=== PATIENT | male | born 1995 | race Caucasian/White ===

== ENCOUNTER → 2020-08-09 | Outpatient (CLI) | payer OTHER ==
--- NOTE | 2020-08-21 11:28 | PFR/MVV ---
[facility] [place] [address] PULMONARY FUNCTION MVV/REPORT Name: [id number] Admission: 08/09/20 Attend Phys: Colt Pennington MD Discharge: Date of : 89 Report #: [id number] THIS REPORT FOR: //name// >> SPIROMETRY: (BTPS) Height: 72 in cm Weight: 192 lbs kg Exam Date: 08/09/20 PRE-RX POST-RX PRED BEST %PRED BEST %PRED %CHG FVC LITERS . 5.74 . 5.47 . 95 . 5.57 . 97 . 2 FEV1 LITERS . 4.50 . 3.96 . 88 . 4.61 . 102 . 16 FEV1/FVC % . 78 . 72 . 93 . 83 . 106 . 14 UDY89-57% L/Sec . 4.68 . 3.28 . 70 . 4.51 . 96 . 38 PEF L/SEC . 10.25 . 6.15 . 60 . 8.26 . 81 . 34 FEF50/FIF50 UNITLESS . 5.99 . 4.16 . 69 . 5.16 . 86 . 24 MVV L/Min . 189 . 82 . 43 f 1/Min . . . >> LUNG VOLUMES: (BTPS) PRE-RX POST-RX PRED AVG %PRED AVG %PRED %CHG VC Liters . 5.74 . 5.47 . 95 . . . TLC Liters . 7.63 . 6.22 . 82 . . . RV Liters . 1.95 . 0.76 . 39 . . . RV/TLC % . 26 . 12 . 47 . . . FRC PL Liters . 3.97 . 2.24 . 57 . . . FRC N2 Liters . 3.97 . . . . . ERV Liters . 1.90 . 1.01 . 53 . . . IC Liters . 3.80 . 3.98 . 105 . . . >> DIFFUSION: DLCO ml/Min/mmHg . 32.8 . 34.5 . 105 . . . DL Nash ml/Min/mmHg . 32.8 . 34.5 . 105 . . . DLCO/VA ml/Min/mmHg . 4.58 . 4.88 . 107 . . . VA Liters . 7.54 . 1.06 . 94 . . . COMMENTS: COMMENTS: >> RESISTANCE: [facility] [address] [place] [address] PULMONARY FUNCTION MVV/REPORT Name: LALO GONZALES [facility] Room #: REG [facility].#: [id number] Admission: 08/09/20 Attend Phys: Colt Pennington MD Discharge: Date of : 89 Report #: [id number] PRE-RX PRED AVG %PRED Raw Total cmH20/L/Sec . . 6.08 . Raw Insp cmH20/L/Sec . . 3.64 . Raw Exp cmH20/L/Sec . . 4.19 . Raw cmH20/L/Sec . 1.10 . 3.74 . 339 Gaw L/Sec/cmH20 . 0.952 . 0.267 . 28 sRaw cmH20 Sec . 4.37 . 16.19 . 370 sGaw l/cmH20 Sec . 0.229 . 0.062 . 27 Vtq Liters . . 4.33 . # = OUTSIDE 95% CONFIDENCE INTERVAL CALIBRATION: PRED: 3.00 ACTUAL: EXP 3.01 INSP 3.02 [facility]-[id number] [facility]- N-[id number] >> INTERPRETATION/IMPRESSION: DOC #: [id number] Kyree Abel M.D. DATE OF SERVICE: 08/09/2020 ATTENDING PHYSICIAN: Dr. Pennington. SPIROMETRY: FEV1 is 3.96 liters (88%), FVC is 5.47 liters (95% predicted). The FEV1/FVC ratio is 72%. Post-bronchodilator response with significant response to therapy. FEV1 increased to 4.61 liters (16% change). LUNG VOLUMES: Total lung capacity is 6.22 liters (82%). RV is 0.76 liters (39%). Vital capacity is 5.47 liters (95% predicted). Diffusing capacity is 105%. IMPRESSION: Pulmonary function studies are consistent with a mild obstructive airflow defect that does correct with bronchodilator therapy. There is a significant response to bronchodilator therapy. Lung volumes are normal. Diffusing capacity is normal. Kyree Abel M.D. [facility] [address] [place] [address] PULMONARY FUNCTION MVV/REPORT Name: LALO GONZALES [facility] Room #: REG CL Aniya.#: [id number] Admission: 08/09/20 Attend Phys: Colt Pennington MD Discharge: Date of : 89 Report #: [id number] <ELECTRONICALLY SIGNED> By: Kyree Abel MD 08/21/20 1128 Kyree Abel MD /nt
== END ==
LOC: EDBD → PUL 12:48 → RAD 12:54 → PUL 12:54
PROVIDERS: ATTEND Orthopaedic Surgery
DX: J98.8 Other specified respiratory disorders (principal)